=== PATIENT | male | born 1985 | race African-American/Black ===

== ENCOUNTER 2016-10-15 19:24 | Emergency (ER) | payer MEDICAID ==
[~2016-10-15] VITALS: Ht 172.7 cm; Wt 81.6 kg
[2016-10-15 19:45] VITALS: BP 150/90; PULSE 78; RESP 16; TEMP 98.2; O2SAT 99
--- NOTE | 2016-10-15 20:45 | NUR ---
Placed in H1 for exam. Report given to LONNIE Vasquez.
--- NOTE | 2016-10-15 20:50 | NUR ---
MAHENDRA De Leon assessing pt in hallway.
--- NOTE | 2016-10-15 20:55 | NUR ---
Pt states his wrist "popped" while lifting heavy boxes at work. Wants to have them checked out. Will continue to monitor. AAOX4. No distress noted.
[2016-10-15] MEDS ORDERED: IBUPROFEN 600 MG TABLET PO ONE (21:30)
[2016-10-15 21:40] VITALS: BP 145/85; PULSE 75; RESP 16; TEMP 98.2; O2SAT 99
--- NOTE | 2016-10-15 21:40 | NUR ---
Patient given written and verbal discharge instructions and verbalizes understanding. ER MD discussed with patient the results and treatment provided. Patient in stable condition. ID arm band removed. Rx of motrin given. Patient educated on pain management and to follow up with PMD. Pain Scale 0/10. Opportunity for questions provided and answered.
== END 2016-10-15 21:40 | disposition home or self-care (01) ==
LOC: SED 19:24
DX: S66.812A Strain of other specified muscles, fascia and tendons at wrist and hand level, left hand, initial encounter (principal); X50.0XXA Overexertion from strenuous movement or load, initial encounter; X50.9XXA Other and unspecified overexertion or strenuous movements or postures, initial encounter; Y93.89 Activity, other specified; Y92.89 Other specified places as the place of occurrence of the external cause; Y99.8 Other external cause status
CPT/HCPCS: 99284

== ENCOUNTER 2019-07-28 17:35 | Emergency (ER) | payer OTHER, MEDICAID ==
[~2019-07-28] VITALS: Ht 172.7 cm; Wt 86.2 kg
[2019-07-28 19:05] VITALS: BP_SYST 149
--- NOTE | 2019-07-28 19:05 | NUR ---
Patient triaged and placed in waiting room. VSS and patient appears in no acute distress at this time. Accompanied by SELF, awaiting available bed, and MD notified of need for MSE.
--- NOTE | 2019-07-28 22:46 | NUR ---
Patient to ER CHAIR to gown for evaluation. Side rails up. Report given to MELI FLEMING.
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
--- NOTE | 2019-07-28 23:12 | NUR ---
ER MD Hurley at bedside for medical evaluation.
[2019-07-28] MEDS ORDERED: ACETAMINOPHEN 500 MG TABLET PO ONE (23:15)
[2019-07-29 00:39] VITALS: BP_SYST 138
--- NOTE | 2019-07-29 00:39 | NUR ---
Patient given written and verbal discharge instructions and verbalizes understanding. ER MD discussed with patient the results and treatment provided. Patient in stable condition. ID arm band removed. Rx of Ibuprofen given. Patient educated on pain management and to follow up with PMD. Pain Scale 2/10 tolerable to patient. Opportunity for questions provided and answered. Medication side effect fact sheet provided.
== END 2019-07-29 00:39 | disposition home or self-care (01) ==
LOC: SED 17:35
DX: S23.3XXA Sprain of ligaments of thoracic spine, initial encounter (principal); V43.52XA Car driver injured in collision with other type car in traffic accident, initial encounter; Y93.89 Activity, other specified; Y92.413 State road as the place of occurrence of the external cause; Y99.8 Other external cause status
CPT/HCPCS: 72125-TC; 72128; 72131; 99284

== ENCOUNTER 2019-08-25 11:51 | Emergency (ER) | payer MEDICAID ==
[~2019-08-25] VITALS: Ht 175.3 cm; Wt 91.6 kg
[2019-08-25 11:51] VITALS: BP_SYST 162
--- NOTE | 2019-08-25 11:51 | NUR ---
Patient triaged and placed in waiting room. VSS BP ELEVATED and patient appears in no acute distress at this time. Accompanied by FAMILY , awaiting available bed, and MD notified of need for MSE.
--- NOTE | 2019-08-25 12:51 | NUR ---
BROUGHT BACK TO BED #3 AND REPORT GIVEN TO FOX
--- NOTE | 2019-08-25 13:00 | NUR ---
Patient presented to ER C/O abdominal pain. Patient A&Ox4, skin pink & warm, afebrile, ambulatory to ER, c/o nausea, denies N/D, pain 9/10. Patient states pain to upper abdomen present x2 days.
--- NOTE | 2019-08-25 13:05 | NUR ---
ER Dr. Glover at bedside examining patient.
[2019-08-25] MEDS ORDERED: LIDOCAINE VISCOUS 2%, 15 ML UDC MM ONE ×2 (13:15→15:15)
[2019-08-25] MEDS ORDERED: DICYCLOMINE HCL 10 MG/5 ML SOLUTION PO ONE ×2 (13:15→15:15)
[2019-08-25] MEDS ORDERED: MAG-AL HYDROX/SIMETH 30 ML UDC PO ONE ×2 (13:15→15:15)
[2019-08-25] MEDS ORDERED: PANTOPRAZOLE SODIUM 40 MG TAB PO ONE (14:30)
[2019-08-25 15:50] VITALS: BP_SYST 155
--- NOTE | 2019-08-25 15:50 | NUR ---
Patient given written and verbal discharge instructions and verbalizes understanding. ER MD discussed with patient the results and treatment provided. Patient in stable condition. ID arm band removed. IV catheter removed intact and dressing applied, no active bleeding. Rx of Protonix, Carafate, Maalox given. Patient educated on pain management and to follow up with PMD. Pain Scale 3/10 tolerable for patient . Opportunity for questions provided and answered. Medication side effect fact sheet provided.
== END 2019-08-25 15:50 | disposition home or self-care (01) ==
LOC: SED 11:51
DX: K21.9 Gastro-esophageal reflux disease without esophagitis (principal); R03.0 Elevated blood-pressure reading, without diagnosis of hypertension
CPT/HCPCS: 99284; J2001

== ENCOUNTER 2020-01-01 22:25 | Emergency (ER) | payer MEDICAID ==
[~2020-01-01] VITALS: Ht 175.3 cm; Wt 93.0 kg
[2020-01-01 22:35] VITALS: BP_SYST 163
--- NOTE | 2020-01-01 22:35 | NUR ---
Patient to ER bed 5 to gown for evaluation. Side rails up.
--- NOTE | 2020-01-01 22:37 | NUR ---
Patient came to ER. C/O left ankle pain x today. 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
--- NOTE | 2020-01-01 22:39 | NUR ---
ER Dr. Fowler at bedside examining patient.
--- NOTE | 2020-01-01 22:48 | NUR ---
X-ray at bedside.
[2020-01-01] MEDS ORDERED: HYDROcodone/ACETAMIN 10-325 MG TAB PO ONE (23:15)
[2020-01-01] MEDS ORDERED: IBUPROFEN 800 MG TABLET PO ONE (23:15)
--- NOTE | 2020-01-01 23:18 | NUR ---
Patient refused Motrin medication, Dr. Fowler notified.
[2020-01-01 23:56] VITALS: BP_SYST 146
--- NOTE | 2020-01-01 23:56 | NUR ---
Patient given written and verbal discharge instructions and verbalizes understanding. ER MD discussed with patient the results and treatment provided. Patient in stable condition. ID arm band removed. Rx of [place] and Ibruprofen given. Patient educated on pain management and to follow up with PMD and consult Orthopedic Pain Scale 11/25. Opportunity for questions provided and answered. Medication side effect fact sheet provided.
== END 2020-01-01 23:56 | disposition home or self-care (01) ==
LOC: SED 22:25
DX: S82.832A Other fracture of upper and lower end of left fibula, initial encounter for closed fracture (principal); F17.200 Nicotine dependence, unspecified, uncomplicated; X50.1XXA Overexertion from prolonged static or awkward postures, initial encounter; Y93.89 Activity, other specified; Y92.89 Other specified places as the place of occurrence of the external cause; Y99.8 Other external cause status
CPT/HCPCS: 99283